=== PATIENT | female | born 1985 | race Caucasian/White ===

== ENCOUNTER 2021-12-01 08:04 | Emergency (ER) | payer BC, OTHER ==
[~2021-12-01] VITALS: Ht 154.9 cm; Wt 78.0 kg
[2021-12-01 08:13] VITALS: BP_SYST 149
--- NOTE | 2021-12-01 09:00 | NUR ---
pPatient to ER bed 2 to gown for evaluation. Side rails up. Report given to Jhoana BARRAZA
--- NOTE | 2021-12-01 09:03 | NUR ---
DR MILLAN AT BEDSIDE FOR EXAM
--- NOTE | 2021-12-01 09:07 | NUR ---
First contact with pt. Pt has cc of abdominal pain that began this morning at 3am. Pt currently laying in gurney and states that pain is in the RUQ and radiates to her back. Pt has hx of gastritis and that she took her omeprazole prescription at home. Pt endorses nausea and vomitting, no diarrhea. Will continue to monitor pt.
[2021-12-01] MEDS ORDERED: MAG HYDROX/AL HYDROX/SIMETH 30 ML, DICYCLOMINE HCL 20 MG, LIDOCAINE VISCOUS 2% 15ML (PO... PO ONE ×3 (10:15)
[2021-12-01 10:29] LABS: BASOPHILS % (AUTO) 0.3 % (0.0-2.0); EOSINOPHILS % (AUTO) 0.1 % (0.0-4.0); HEMATOCRIT 43.2 % (36-48); HEMOGLOBIN 14.5 g/dL (12.0-16.0); LYMPHOCYTES # (AUTO) 0.8 K/uL (1.0-5.5); MEAN CORPUSCULAR HEMOGLOBIN 30 pg (27-31); MEAN CORPUSCULAR HGB CONC 34 % (32-36); MEAN CORPUSCULAR VOLUME 88 fL (79.0-98.0); MONOCYTES # (AUTO) 0.4 K/uL (0.0-1.0); MONOCYTES % (AUTO) 3.4 % (1.7-9.3); NEUTROPHILS # (AUTO) 11.4 K/uL (1.8-7.7); NEUTROPHILS % (AUTO) 90.2 % (40.0-70.0); PLATELET COUNT (AUTO) 242 K/uL (130-430); RED BLOOD CELL COUNT(AUTO) 4.89 MIL/uL (4.2-6.2); RED CELL DISTRIBUTION WIDTH 12.9 % (9.0-15.0); WHITE BLOOD COUNT (AUTO) 12.6 K/uL (4.8-10.8)
[2021-12-01 10:42] LABS: CALCIUM 8.7 mg/dL (8.4-11.0); CREATININE 0.72 mg/dL (0.55-1.30); POTASSIUM 4.1 mmol/L (3.5-5.1)
[2021-12-01 10:47] LABS: ALBUMIN 4.1 g/dL (3.4-4.8); TOTAL BILIRUBIN 0.7 mg/dL (0.0-1.0)
[2021-12-01] MEDS ORDERED: ANT30 PO (11:40)
[2021-12-01] MEDS ORDERED: DICY10CA13 PO (11:40)
[2021-12-01] MEDS ORDERED: ONDA-8 TL (11:40)
--- NOTE | 2021-12-01 12:01 | NUR ---
Patient given written and verbal discharge instructions and verbalizes understanding. ER MD discussed with patient the results and treatment provided. Patient in stable condition. ID arm band removed. IV catheter removed intact and dressing applied, no active bleeding. Rx of MYLANTA, MAALOX, DICYCLOMINE, ZOFRABN given. Patient educated on pain management and to follow up with PMD. Pain Scale . Opportunity for questions provided and answered. Medication side effect fact sheet provided.
[2021-12-01 12:03] VITALS: BP_SYST 143
== END 2021-12-01 12:02 | disposition home or self-care (01) ==
LOC: SED 08:04
DX: K29.50 Unspecified chronic gastritis without bleeding (principal); Z79.899 Other long term (current) drug therapy
CPT/HCPCS: 36415; 74021; 80053; 83690; 85025; 99284; J2001